=== PATIENT | male | born 1965 | race Hispanic/Latino ===

== ENCOUNTER 2021-02-10 01:33 | Emergency (ER) | payer BC ==
[~2021-02-10] VITALS: Ht 177.8 cm; Wt 139.7 kg
[2021-02-10 01:55] LABS: BASOPHILS % (AUTO) 0.5 % (0.0-5.0); HEMATOCRIT 43.1 % (42-54); LYMPHOCYTES % (AUTO) 36.9 % (21.0-51.0); MEAN CORPUSCULAR HEMOGLOBIN 30.5 pg (27.0-33.0); MEAN CORPUSCULAR HGB CONC 34.3 g/dL (32.0-36.0); MEAN CORPUSCULAR VOLUME 88.9 fL (79-99); MONOCYTES % (AUTO) 10.2 % (3.0-13.0); NEUTROPHILS % (AUTO) 46.2 % (40.0-77.0); PLATELET COUNT (AUTO) 150 K/uL (130-400); RED BLOOD CELL COUNT(AUTO) 4.85 MIL/uL (4.50-6.20); WHITE BLOOD COUNT (AUTO) 6.2 K/uL (4.8-10.8)
[2021-02-10] MEDS ORDERED: KETOROLAC 30MG VIAL (30MG/ML) IV ONE (02:00)
[2021-02-10 02:09] LABS: CREATININE 1.1 mg/dL (0.5-1.5); POTASSIUM 3.7 mmol/L (3.5-5.1)
[2021-02-10 02:14] LABS: BILIRUBIN,TOTAL 1.1 mg/dL (0.2-1.0); TOTAL PROTEIN, SERUM 7.8 g/dL (6.0-8.3)
[2021-02-10] MEDS ORDERED: ONDANSETRON 4MG INJ ONE (02:50)
[2021-02-10] MEDS ORDERED: ONDANSETRON 4MG INJ IVP ONE (03:00)
[2021-02-10 06:50] VITALS: BP 146/62
== END 2021-02-10 06:50 | disposition home or self-care (01) ==
LOC: EDH 01:33
DX: R07.89 Other chest pain (principal); I10 Essential (primary) hypertension; E11.9 Type 2 diabetes mellitus without complications; Z79.1 Long term (current) use of non-steroidal anti-inflammatories (NSAID); Z79.899 Other long term (current) drug therapy
CPT/HCPCS: 36415; 71045; 80053; 84484 ×2; 85025; 93005 ×2; 96374; 96375; 99284; J1885; J2405

== ENCOUNTER → 2021-12-26 | Outpatient (CLI) | payer BC ==
[2021-12-26 12:44] LABS: POTASSIUM 3.9 mmol/L (3.5-5.1); TOTAL PROTEIN, SERUM 7.6 g/dL (6.0-8.3)
== END | disposition home or self-care (01) ==
LOC: LAB 08:29
PROVIDERS: ATTEND Internal Medicine Cardiovascular Disease
DX: E78.2 Mixed hyperlipidemia (principal)
CPT/HCPCS: 36415; 80053; 80061

== ENCOUNTER → 2022-07-16 | Outpatient (CLI) | payer BC ==
[2022-07-16 12:36] LABS: ALBUMIN 3.8 g/dL (3.5-5.0); POTASSIUM 4.1 mmol/L (3.5-5.1); TOTAL PROTEIN, SERUM 7.4 g/dL (6.0-8.3)
== END | disposition home or self-care (01) ==
LOC: LAB 08:24
PROVIDERS: ATTEND Internal Medicine Cardiovascular Disease
DX: E11.59 Type 2 diabetes mellitus with other circulatory complications (principal); I10 Essential (primary) hypertension; E78.5 Hyperlipidemia, unspecified
CPT/HCPCS: 36415; 80053; 80061

== ENCOUNTER 2023-05-21 05:45 | Day surgery (SDC) | payer BC, OTHER ==
[2023-05-21] VITALS (15 sets, daily range): BP systolic 113–146; BP diastolic 48–82; PULSE 64–78; RESP 12–18
[~2023-05-21] VITALS: Ht 177.8 cm; Wt 120.8 kg
[~2023-05-21 05:45] MED LIST: AEC81 PO; ALBU6.7H14 IH; AMIL5TAB8 PO; ATOR40TA69 PO; CARV6.25 PO; DAPA10TA PO; DOXA8TAB81 PO; EMPA25TA PO; FISH OIL OMEGA 3 PO; FLUOXETINE PO; HYDR-3422 PO; MELATONIN PO; METF-527 PO; MILK500C PO; MIRT45TA83 PO; MONT-39 PO; PRAZOSIN PO; RAMI5CAP66 PO; SYNTHROID PO; UBID400C8 PO
[2023-05-21] MEDS: 0.9%NACL 1000ML 1,000 ML IV ONE (06:57)
[2023-05-21] MEDS ORDERED: PROPOFOL 10 MG/ML 20ML VIAL IV ONE (08:42)
[2023-05-21] MEDS: DEXTROSE 50%-WATER 50 ML DISP.SYRIN IV ONE (09:29)
[2023-05-21] MEDS ORDERED: DEXTROSE 50%-WATER 50 ML DISP.SYRIN IV ONE (09:30)
== END 2023-05-21 11:30 | disposition home or self-care (01) ==
LOC: DAH 05:45 → ENDO 05:45
PROVIDERS: ATTEND Internal Medicine Gastroenterology
DX: Z12.11 Encounter for screening for malignant neoplasm of colon (principal); K63.5 Polyp of colon; R94.5 Abnormal results of liver function studies; K76.0 Fatty (change of) liver, not elsewhere classified; J45.909 Unspecified asthma, uncomplicated; G47.33 Obstructive sleep apnea (adult) (pediatric); I10 Essential (primary) hypertension; E66.9 Obesity, unspecified; E11.9 Type 2 diabetes mellitus without complications; F41.9 Anxiety disorder, unspecified; F32.A Depression, unspecified; E03.9 Hypothyroidism, unspecified; M19.90 Unspecified osteoarthritis, unspecified site; Z79.899 Other long term (current) drug therapy; Z79.01 Long term (current) use of anticoagulants; Z98.890 Other specified postprocedural states; Z68.38 Body mass index [BMI] 38.0-38.9, adult; Z90.49 Acquired absence of other specified parts of digestive tract; Z90.89 Acquired absence of other organs; Z79.82 Long term (current) use of aspirin; Z79.890 Hormone replacement therapy; Z79.84 Long term (current) use of oral hypoglycemic drugs; Z99.81 Dependence on supplemental oxygen
CPT/HCPCS: 82948 ×3; 45380; J7030 ×2; J7070; J2704; A4620; A4215 ×2; A4223; A7002; A4222; A4221; A4663; A4606; J3490

== ENCOUNTER 2024-07-07 06:53 | Day surgery (SDC) | payer OTHER ==
[2024-07-07] VITALS (10 sets, daily range): BP systolic 118–148; BP diastolic 75–80; PULSE 62–67; RESP 15–18; TEMP 97.2–97.3
[~2024-07-07] VITALS: Ht 177.8 cm; Wt 123.4 kg
[~2024-07-07 06:53] MED LIST changes: +KETO10TA2 PO; -RAMI5CAP66 PO; +RAMI5CAP72 PO
[2024-07-07] MEDS: 0.9%NACL 1000ML 1,000 ML IV ONE (07:18)
[2024-07-07] MEDS ORDERED: METF-444 PO (07:27)
[2024-07-07] MEDS ORDERED: VENL50TA29 PO (07:29)
[2024-07-07] MEDS ORDERED: proPOFol 10 MG/ML 20ML VIAL IV ONE (08:33)
[2024-07-07] MEDS ORDERED: LIDOCAINE HCL 1% 20 ML VIAL ONE (08:34)
== END 2024-07-07 09:40 | disposition home or self-care (01) ==
LOC: ENDO 06:53 → DAH 06:53 → ENDO 09:40
PROVIDERS: ATTEND Internal Medicine Gastroenterology
DX: R93.2 Abnormal findings on diagnostic imaging of liver and biliary tract (principal); K86.2 Cyst of pancreas; K74.02 Hepatic fibrosis, advanced fibrosis; D12.6 Benign neoplasm of colon, unspecified; K76.0 Fatty (change of) liver, not elsewhere classified; R94.5 Abnormal results of liver function studies; E11.9 Type 2 diabetes mellitus without complications; Z99.81 Dependence on supplemental oxygen; R93.429 Abnormal radiologic findings on diagnostic imaging of unspecified kidney; I10 Essential (primary) hypertension; J45.909 Unspecified asthma, uncomplicated; E66.9 Obesity, unspecified; F41.9 Anxiety disorder, unspecified; F32.A Depression, unspecified; M19.90 Unspecified osteoarthritis, unspecified site; E03.9 Hypothyroidism, unspecified; E78.5 Hyperlipidemia, unspecified; Z90.49 Acquired absence of other specified parts of digestive tract; Z79.899 Other long term (current) drug therapy
CPT/HCPCS: 43259; 82948 ×2; J7030 ×2; J2704; A4620; A4215 ×2; A4223; A4222; A4221; A4663; A4606; J3490